=== PATIENT | female | born 1980 | race Caucasian/White ===

== ENCOUNTER 2017-04-13 16:20 | Emergency (ER) | payer MEDICAID ==
[2017-04-13] MEDS ORDERED: HYDROmorphone 2 MG/ML SDV IM ONE (16:48)
[2017-04-13] MEDS ORDERED: Ondansetron 4 MG Tab.DIS PO STA (16:49)
[2017-04-13] MEDS ORDERED: predniSONE 20 MG Tab PO ONE (16:55)
[2017-04-13 17:18] VITALS: BP 157/89
[2017-04-14] MEDS ORDERED: predniSONE 20 MG Tab PO SCH (08:00)
--- NOTE | 2017-04-14 13:32 | ER ---
DATE SEEN: 04/13/2017 TIME SEEN: [facility] was seen at 1630. 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 Recently, she started having, 2 days ago, onset of severe left facial pain with sinusitis and nasal congestion. The pain is not causing neck stiffness. She does not have diabetes. She has been started on Augmentin 875 mg b.i.d. 2 days ago. The patient does not have vaginitis, does not have fever, denies any neck stiffness, has mild sore throat but. PAST MEDICAL HISTORY: 1. Crohn disease. 2. Significant for seasonal allergies, tension headaches, and anxiety. CURRENT MEDICATIONS: 1. Augmentin 875/125 mg. 2. Tylenol No. 3. REVIEW OF SYSTEMS: Otherwise, negative. SOCIAL HISTORY: The patient is a teacher, is not . She is a smoker. PHYSICAL EXAMINATION: VITAL SIGNS: Blood pressure 154/89, heart rate 72, respirations 16, oxygen saturation 100% on room air, and 36.7 degrees centigrade. GENERAL: The patient has exquisite pain in left maxillary sinus. NECK: Supple. She has slight swelling in left maxillary sinus, marked tenderness in maxillary sinus. Cervical spine is without tenderness. No bruits in neck. Minimal cervical adenopathy. HEENT: EOMs normal appearance. Retina normal appearance bilaterally. Hearing is appropriate. Pharynx with minimal erythema. She has bilateral almost juxtaposition of the middle turbinates against the septum. Very small air gap noted between the septum and the mucosa of the turbinate. LUNGS: Clear to auscultation without rales, rhonchi, or wheezes. HEART: S1, S2. No murmur. No irregular rate and rhythm. ABDOMEN: Soft. No guarding. No abdominal discomfort. EXTREMITIES: Without abnormality. LABORATORY STUDIES: Not performed. ASSESSMENT: 1. Maxillary sinusitis, partially treated. 2. Seasonal allergies, long listed. PLAN: Prednisone 20 mg b.i.d. for 5 days and 10 mg b.i.d. for 5 days then 10 mg every other day for 5 doses). The patient has Tylenol, ibuprofen at home. She was given a shot of Dilaudid in the ED 1 mg IM because of the pain and discomfort plus Zofran 4 mg orally. Plan to follow up with doctor in a week or earlier if worse. If any sign of neck stiffness, compromised vision, terrible neck pain, or terrible pain in face; return to the ED and/or see a doctor immediately. DIAGNOSES: 1. Maxillary sinusitis. 2. Seasonal allergies. 3. Overweight. 4. Smoker. The patient was seen at 1630. /[id number] OBI/ISABELLA
== END 2017-04-13 17:09 | disposition home or self-care (01) ==
LOC: FB.ED 16:20
DX: J32.0 Chronic maxillary sinusitis (principal); J30.2 Other seasonal allergic rhinitis
CPT/HCPCS: 96372; 99283; A9270; J1170